=== PATIENT | female | born 1955 | race Caucasian/White ===

== ENCOUNTER 2016-07-08 15:56 | Emergency (ER) | payer MEDICARE ==
[~2016-07-08] VITALS: Wt 68.0 kg
[~2016-07-08 15:56] MED LIST: ATARAX25 MG PO; CLARITIN10 MG PO; HYDROCHLOROTHIA25 M1 PO; IBUPROFEN 30 M800 MG PO; LEVOFLOXACIN500 MG PO; LIDEX 0.05% CRE15 GM T; MEDROL DOSEPAK4 MG PO; PERCOCET 325 MG1 TA6 PO; PREDNICOT20 MG PO; SOMA350 MG PO; TEGRETOL100 MG PO; XANAX0.5 MG PO; ZANTAC 150150 MG PO
[2016-07-08 16:17] VITALS: BP 165/80
[2016-07-08] MEDS ORDERED: PREDNISONE20 M1 PO (17:20)
[2016-07-08] MEDS ORDERED: AMOXICILLIN500 M2 PO (17:20)
[2016-07-08] MEDS ORDERED: TESSALON PERLE100 M1 PO (17:20)
== END 2016-07-08 16:55 | disposition home or self-care (01) ==
LOC: ED 15:56
DX: J20.9 Acute bronchitis, unspecified (principal); Z88.2 Allergy status to sulfonamides; Z90.710 Acquired absence of both cervix and uterus

== ENCOUNTER 2016-09-30 17:41 | Emergency (ER) | payer MEDICARE ==
[~2016-09-30] VITALS: Wt 68.0 kg
[~2016-09-30 17:41] MED LIST changes: +AMOXICILLIN500 M2 PO; +PREDNISONE20 M1 PO; +TESSALON PERLE100 M1 PO
[2016-09-30 17:43] VITALS: BP 159/88
[2016-09-30] MEDS ORDERED: LISINOPRIL40 MG PO (17:44)
[2016-09-30] MEDS ORDERED: MEDROL DOSEPAK4 MG PO (18:01)
== END 2016-09-30 18:04 | disposition home or self-care (01) ==
LOC: ED 17:41
DX: L50.9 Urticaria, unspecified (principal); Z88.2 Allergy status to sulfonamides

== ENCOUNTER → 2016-10-22 | Outpatient (CLI) | payer MEDICARE ==
[~2016-10-22] MED LIST changes: +LISINOPRIL40 MG PO
== END | disposition home or self-care (01) ==
LOC: RESCLI 02:49
DX: I10 Essential (primary) hypertension (principal); E78.5 Hyperlipidemia, unspecified; M54.5 Low back pain; G40.909 Epilepsy, unspecified, not intractable, without status epilepticus; K52.9 Noninfective gastroenteritis and colitis, unspecified; L50.9 Urticaria, unspecified

== ENCOUNTER → 2018-09-18 | Outpatient (CLI) | payer MEDICARE | END | disposition home or self-care (01) | LOC: MRI 02:44 | DX: R55 Syncope and collapse (principal); G93.89 Other specified disorders of brain ==

== ENCOUNTER → 2019-05-27 | Outpatient (CLI) | payer MEDICARE | END | disposition home or self-care (01) | LOC: CARD 04-23 14:00 | DX: I08.1 Rheumatic disorders of both mitral and tricuspid valves (principal); R55 Syncope and collapse ==

== ENCOUNTER 2019-08-17 14:06 | Emergency (ER) | payer MEDICARE ==
[~2019-08-17] VITALS: Ht 167.6 cm; Wt 76.7 kg
[2019-08-17 14:09] VITALS: BP 131/59
[2019-08-17 14:54] LABS: EOS # 0.1 10*3/uL (0.0-0.4); EOS % 1.5 % (1.0-4.0); HEMATOCRIT 33.5 % (37.0-47.0); HEMOGLOBIN 11.3 g/dl (12.0-16.0); LYMPH # 1.1 10*3/uL (1.3-4.4); LYMPH % 23.8 % (27.0-41.0); MEAN CELL VOLUME 96.5 fl (81.0-99.0); MEAN CORPUSCULAR HGB 32.6 pg (27.0-31.0); MEAN CORPUSCULAR HGB CONC 33.7 g/dl (33.0-37.0); MEAN PLATELET VOLUME 9.1 fl (9.6-12.3); MONO # 0.5 10*3/uL (0.1-1.0); MONO % 10.9 % (3.0-9.0); NEUT % 63.2 % (47.0-73.0); PLATELET COUNT AUTOMATED 228 10*3/uL (130-400); RED BLOOD COUNT 3.47 10*6/uL (4.10-5.10); RED CELL DISTRI WIDTH 13.4 % (0-14.5); WHITE BLOOD COUNT 4.7 10*3/uL (4.8-10.8)
[2019-08-17 15:11] LABS: ALBUMIN 3.7 gm/dl (3.1-4.5); ALKALINE PHOSPHATASE 88 U/L (45-117); BUN 20 mg/dl (7-24); CHLORIDE 101 mmol/L (98-107); CREATININE 1.12 mg/dL (0.55-1.02); POTASSIUM 4.1 mmol/L (3.5-5.1); SGOT/AST 25 IU/L (3-35); SGPT/ALT 38 U/L (12-78); SODIUM 134 mmol/L (136-145); TOTAL PROTEIN 7.1 gm/dL (6.4-8.2)
[2019-08-17 15:14] LABS: TROPONIN I < 0.015 ng/ml (<0.045)
== END 2019-08-17 17:14 | disposition home or self-care (01) ==
LOC: ED 14:06
PROVIDERS: Emergency Medicine
DX: R53.1 Weakness (principal); G40.909 Epilepsy, unspecified, not intractable, without status epilepticus; G43.909 Migraine, unspecified, not intractable, without status migrainosus; J45.909 Unspecified asthma, uncomplicated; M06.9 Rheumatoid arthritis, unspecified; Z79.899 Other long term (current) drug therapy

== ENCOUNTER → 2020-03-30 | Outpatient (CLI) | payer MEDICARE | END | disposition home or self-care (01) | LOC: US 03:36 | PROVIDERS: ATTEND Physician Assistant | DX: I65.23 Occlusion and stenosis of bilateral carotid arteries (principal); I10 Essential (primary) hypertension ==

== ENCOUNTER 2020-09-19 16:56 | Emergency (ER) | payer MEDICARE ==
[~2020-09-19] VITALS: Ht 167.6 cm; Wt 79.4 kg
[2020-09-19 17:10] VITALS: BP 185/83
[2020-09-19] MEDS ORDERED: HYDROXYZINE HCL25 MG PO (18:33)
== END 2020-09-19 18:44 | disposition home or self-care (01) ==
LOC: ED 16:56
DX: L50.9 Urticaria, unspecified (principal); G43.909 Migraine, unspecified, not intractable, without status migrainosus; J45.909 Unspecified asthma, uncomplicated; M81.0 Age-related osteoporosis without current pathological fracture; M19.90 Unspecified osteoarthritis, unspecified site; Z88.2 Allergy status to sulfonamides; Z79.899 Other long term (current) drug therapy; Z88.8 Allergy status to other drugs, medicaments and biological substances; Z98.51 Tubal ligation status; Z90.711 Acquired absence of uterus with remaining cervical stump

== ENCOUNTER 2020-11-08 17:42 | Emergency (ER) | payer OTHER ==
[~2020-11-08] VITALS: Ht 167.6 cm; Wt 79.4 kg
[~2020-11-08 17:42] MED LIST changes: +HYDROXYZINE HCL25 MG PO
[2020-11-08] MEDS ORDERED: NORVASC2.5 MG PO (20:01)
[2020-11-08 20:50] VITALS: BP 189/91
[2020-11-08] MEDS ORDERED: COZAAR25 M1 PO (21:30)
== END 2020-11-08 21:44 | disposition home or self-care (01) ==
LOC: ED 17:42
DX: I16.0 Hypertensive urgency (principal); Z88.2 Allergy status to sulfonamides; Z88.8 Allergy status to other drugs, medicaments and biological substances; Z79.899 Other long term (current) drug therapy; Z98.51 Tubal ligation status; Z90.711 Acquired absence of uterus with remaining cervical stump

== ENCOUNTER → 2024-12-07 | Outpatient (CLI) | payer OTHER ==
[~2024-12-07] MED LIST changes: +COZAAR25 M1 PO; +NORVASC2.5 MG PO
[2024-12-07 12:22] LABS: BASO % 0.2 % (0.0-1.0); EOS # 0.1 10*3/uL (0.0-0.4); EOS % 1.5 % (1.0-4.0); HEMATOCRIT 34.9 % (37.0-47.0); MEAN CELL VOLUME 93.3 fl (81.0-99.0); MEAN CORPUSCULAR HGB 30.7 pg (27.0-31.0); MONO # 0.4 10*3/uL (0.1-1.0); MONO % 9.6 % (3.0-9.0); NEUT # 2.6 10*3/uL (2.3-7.9); NEUT % 56.3 % (47.0-73.0); PLATELET COUNT AUTOMATED 222 10*3/uL (130-400); RED BLOOD COUNT 3.74 10*6/uL (4.10-5.10); RED CELL DISTRI WIDTH 14.3 % (0-14.5); WHITE BLOOD COUNT 4.6 10*3/uL (4.8-10.8)
[2024-12-07 12:47] LABS: ALKALINE PHOSPHATASE 153 U/L (46-116); BUN 20 mg/dl (9-23); CHLORIDE 104 mmol/L (98-107); CHOLESTEROL 180 mg/dL (<200); LDL CHOLESTEROL 113 mg/dL (9-159); POTASSIUM 3.5 mmol/L (3.4-5.1); SGPT/ALT 10 U/L (5-49); TOTAL PROTEIN 6.9 gm/dL (6.0-8.0)
[2024-12-07 13:10] LABS: VITAMIN D, 25-HYDROXY 11.7 ng/mL (30-100)
[2024-12-08 05:06] LABS: HEP B SURFACE Ab, Qual Non Reactive (.)
[2024-12-09 15:07] LABS: HCV LOG 10 6.533 (.); HCV RT-PCR RFX 3410000 IU/mL (.)
[2024-12-09 20:07] LABS: TB1 Ag VALUE 0.05 IU/mL (.)
== END | disposition home or self-care (01) ==
LOC: LAB 11:33
PROVIDERS: ATTEND Internal Medicine
DX: M06.9 Rheumatoid arthritis, unspecified (principal); I10 Essential (primary) hypertension; E78.00 Pure hypercholesterolemia, unspecified